=== PATIENT | male | born 1950 | race Caucasian/White ===

== ENCOUNTER 2018-05-22 17:48 | Inpatient (IN) ==
[2018-05-22] MEDS ORDERED: Acetaminophen 120 MG RECTAL SUPP RC ONE (17:56)
[2018-05-22] MEDS ORDERED: 0.9 % Sodium Chloride 1,000 ML IVC ONE (17:57)
[2018-05-22] MEDS: 0.9 % Sodium Chloride 1,000 ML IVC SCH ×2 (17:57→18:29)
[2018-05-22] MEDS ORDERED: Acetaminophen 650 MG RECTAL SUPP RC ONE (17:59)
[2018-05-22] MEDS ORDERED: Levofloxacin 750 MG/150 ML 750 MG/150 ML BAG IVPB ONE (18:02)
[2018-05-22] MEDS ORDERED: Azithromycin 500 MG in D5% in Water 250 ML IVPB ONE (18:02)
--- NOTE | 2018-05-22 18:06 | Emergency Department Note ---
Disposition Clinical Impression: Delirium due to general medical condition Sepsis Qualifiers: Sepsis type: sepsis due to unspecified organism Qualified Code(s): A41.9 - Sepsis, unspecified organism Disposition: Still a Patient Referrals: Russ Mitchell DO [Primary Care Provider] - General Adult HPI - General Chief complaint: ED Altered Mental Status Stated complaint: AMS Time Seen by Provider: 05/22/18 17:49 Source: EMS Limitations: no limitations - History of Present Illness Pain Scale: 0 - Related Data Home Medications Medication Instructions Recorded Confirmed Aspirin 10/29/15 10/29/15 Baclofen 10/29/15 10/29/15 BuPROPion 10/29/15 10/29/15 CarBAMazepine 10/29/15 10/29/15 FLUoxetine HCl 10/29/15 10/29/15 Haloperidol 10/29/15 10/29/15 Klonopin 10/29/15 10/29/15 MiraLAX 10/29/15 10/29/15 Multivitamin 10/29/15 10/29/15 Singulair 10/29/15 10/29/15 Vitamin D 10/29/15 10/29/15 Vitamin E 10/29/15 10/29/15 Zantac 10/29/15 10/29/15 Previous Rx's Medication Instructions Recorded Doxycycline 100 mg PO BID #14 capsule 10/29/15 predniSONE [Prednisone] 40 mg PO DAILY #4 tablet 10/29/15 Doxycycline Hyclate 100 mg PO BID #14 tablet 05/21/18 Allergies Allergy/AdvReac Type Severity Reaction Status Date / Time celecoxib [From Celebrex] Allergy Rash Verified 10/15/15 11:53 cephalexin [From Keflex] Allergy Rash Verified 10/15/15 11:53 Past Medical History - Past Medical History Medical history: Reports: hypertension, other Surgical history: Reports: no surgical history Psychiatric history: Reports: anxiety, depression - Social History Smoking Status: Never smoker Smokeless Tobacco Status: No Alcohol use: Reports: none Drug use: Reports: none Physical Exam - General Limitations: no limitations General appearance: alert, in no apparent distress Course - Reevaluation(s) Reevaluation #1: Attestation note I examined this patient and my medical decision-making was reviewed with the emergency medicine resident. I agree with the documented findings, disposition and treatment plan as described except to the extent set forth below. Patient seen with emergency medicine resident Dr. Cari Hubbard, Please see a copy of his note for details of the H&P, ED evaluation, management and disposition. I have independently evaluated the patient and confirmed appropriate portions of the history and physical exam. Briefly: 67-year-old male seen yesterday by Dr. Mcpherson in the emergency department at [facility]. Please see a copy of his chart for details of the history evaluation workup and discharge disposition at the time. Patient arrives decreased responsiveness altered mental status by EMS. Patient was slightly somnolent responds a little daughter Zohra patient has a history of [place]'s chorea patient had a chest x-ray which showed infiltrate was placed and antibiotics. Patient comes in with mental status that stiffing from yesterday. Dr. Mcphreson who is working today was able to confirm that at bedside. Patient's satisfy sepsis criteria and is undergoing sepsis protocol with IV antibiotics labs and IV fluid. Urinalysis and chest x- ray pending. Providing 45 minutes critical care service this patient admission anticipated disposition pending Time: 18:04 Vital Signs Temperature 101.5 F H 05/22/18 17:49 Pulse Rate 112 05/22/18 17:49 Respiratory Rate 26 05/22/18 17:49 Blood Pressure 129/96 05/22/18 17:49 O2 Sat by Pulse Oximetry 94 05/22/18 17:49 Temperature 101.5 F H 05/22/18 17:49 Pulse Rate 112 05/22/18 17:49 Respiratory Rate 26 05/22/18 17:49 Blood Pressure 129/96 05/22/18 17:49 O2 Sat by Pulse Oximetry 92 05/22/18 17:53 Oxygen Delivery Oxygen Delivery Nasal Cannula
[2018-05-22] MEDS ORDERED: Piperacillin/Tazobactam 3.375 GM in 0.9 % Sodium Chloride Mini Bag 100 ML IVPB ONE (18:07)
[2018-05-22 18:12] LABS: Basophils # 0.1 K/mcL (0.0-0.2); Basophils % 0.3 %; Hematocrit 47.6 % (37.5-50.1); Hemoglobin 15.6 g/dL (12.9-16.9); Immature Granulocytes % 0.4 % (0-4); Lymphocytes # 0.6 K/mcL (0.6-4.6); Lymphocytes % 4.3 %; Mean Corpuscular HGB Conc 32.8 g/dL (31.6-35.5); Mean Corpuscular Hemoglobin 31.4 pg (28.0-33.3); Mean Corpuscular Volume 95.8 fL (83.0-100.0); Mean Platelet Volume 9.9 fL (9.4-12.4); Monocytes % 6.7 %; Neutrophils # 12.8 K/mcL (1.6-8.9); Platelet Count 186 K/mcL (140-400); Red Blood Count 4.97 M/mcL (4.19-5.50); Red Cell Distribution Width 12.4 % (11.5-14.5); Segmented Neutrophils % 88.3 %
[2018-05-22 18:14] LABS: Bilirubin,Urine Small (Negative); Blood,Urine Moderate (Negative); Clarity,Urine Clear (Clear); Color,Urine Dark Yellow (Yellow); Glucose,Urine (UA) Normal (Normal); Ketones,Urine 15 mg/dL (Negative); Leukocyte Esterase,Urine Negative (Negative); Nitrite,Urine Negative (Negative); Protein,Urine 100 mg/dL (Neg-Trace); Specific Gravity,Urine > 1.030 (1.010-1.025); Urobilinogen,Urine Normal (Normal)
[2018-05-22 18:17] LABS: Bacteria,Urine None Seen per hpf (None-Few); RBC,Urine 15-30 per hpf (0-3); Squamous Epithelial Cell,Urine Many per lpf (None-Few); WBC,Urine 0-3 per hpf (0-3)
[2018-05-22 18:20] LABS: INR 1.2
[2018-05-22 18:31] LABS: Hyaline Casts,Urine Moderate per lpf (None-Few)
[2018-05-22 18:38] LABS: Alanine Aminotransferase 11 Units/L (7-52); Albumin 4.1 g/dL (3.5-5.7); Albumin/Globulin Ratio 1.4 (1.1-2.2); Alkaline Phosphatase 82 Units/L (34-104); Aspartate Amino Transferase 23 Units/L (13-39); BUN/Creatinine Ratio 20 (6-26); Bilirubin,Total 0.5 mg/dL (0.3-1.0); Blood Urea Nitrogen 19 mg/dL (8-23); Calcium 9.2 mg/dL (8.6-10.3); Carbon Dioxide 32 mEq/L (23-29); Chloride 100 mEq/L (98-107); Glucose 148 mg/dL (70-105); Magnesium 1.8 mg/dL (1.6-2.6); Osmolality,Calculated 295 (280-300); Phosphorous 1.9 mg/dL (2.7-4.5); Sodium 140 mEq/L (136-145); Total Protein 7.1 g/dL (6.4-8.9); Troponin I < 0.03 ng/mL (< 0.04); eGFR For African Americans > 60 (> 60); eGFR For Non-African Americans > 60 (> 60)
--- NOTE | 2018-05-22 18:43 | Emergency Department Note ---
Disposition Clinical Impression: Delirium due to general medical condition Sepsis Qualifiers: Sepsis type: sepsis due to unspecified organism Qualified Code(s): A41.9 - Sepsis, unspecified organism Disposition: Admitted As Inpatient Condition: Good Referrals: Russ Mitchell DO [Primary Care Provider] - Forms: ED Satisfaction Letter Time of Disposition: 18:51 General Adult HPI - General Chief complaint: ED Altered Mental Status Stated complaint: AMS Time Seen by Provider: 05/22/18 17:49 Source: EMS Limitations: no limitations Nursing Notes Reviewed: Yes Vital Signs Reviewed: Yes - History of Present Illness HPI Narrative: Decreased responsiveness throughout the day today. Was seen here yesterday and given doxycycline but had not received any doses of this for possible pneumonia. Has been febrile at home. Pain Scale: 0 - Related Data Home Medications Medication Instructions Recorded Confirmed Aspirin 10/29/15 10/29/15 Baclofen 10/29/15 10/29/15 BuPROPion 10/29/15 10/29/15 CarBAMazepine 10/29/15 10/29/15 FLUoxetine HCl 10/29/15 10/29/15 Haloperidol 10/29/15 10/29/15 Klonopin 10/29/15 10/29/15 MiraLAX 10/29/15 10/29/15 Multivitamin 10/29/15 10/29/15 Singulair 10/29/15 10/29/15 Vitamin D 10/29/15 10/29/15 Vitamin E 10/29/15 10/29/15 Zantac 10/29/15 10/29/15 Previous Rx's Medication Instructions Recorded Doxycycline 100 mg PO BID #14 capsule 10/29/15 predniSONE [Prednisone] 40 mg PO DAILY #4 tablet 10/29/15 Doxycycline Hyclate 100 mg PO BID #14 tablet 05/21/18 Allergies Allergy/AdvReac Type Severity Reaction Status Date / Time celecoxib [From Celebrex] Allergy Rash Verified 10/15/15 11:53 cephalexin [From Keflex] Allergy Rash Verified 10/15/15 11:53 Limitations: ROS unobtainable due to patients medical condition Past Medical History - Past Medical History Medical history: Reports: hypertension, other Surgical history: Reports: no surgical history Psychiatric history: Reports: anxiety, depression - Social History Smoking Status: Never smoker Smokeless Tobacco Status: No Alcohol use: Reports: none Drug use: Reports: none Physical Exam - General Limitations: altered mental status - Head Head exam: atraumatic, normocephalic, normal inspection - Eye Eye exam: Present: normal appearance, PERRL, EOMI - ENT ENT exam: normal exam, normal oropharynx, mucous membranes moist - Neck Neck exam: Present: normal inspection, full ROM, trachea midline - Chest Chest inspection: Present: normal inspection, symmetric chest wall rise - Respiratory Respiratory exam: Present: respiratory distress (Tachypneic.), wheezes ( Decreased lower lobe sounds. Rhonchorous in the upper bilaterally.), accessory muscle use - Cardiovascular Cardiovascular exam: Present: tachycardia, normal heart sounds - Abdominal Exam Abdominal exam: Present: soft. Absent: distention, rigidity, organomegaly - Extremities Exam Extremities exam: Present: normal inspection, full ROM. Absent: tenderness, pedal edema - Neurological Exam Neurological exam: Present: other (Patient does arouse and speaks but quickly goes back to sleep.) - Skin Skin exam: Present: warm, dry, other (Skin breakdown to buttocks.) Course Course Narrative: Male patient presenting to emergency department with decreased responsiveness. EMS reports a possible response to Narcan. He did receive another dose Narcan here with no large response. states that the patient was hard to arouse today. He was seen here yesterday and given doxycycline for possible pneumonia. There is no pneumonia seen on x-ray however the physician stated that there is a large amount of secretions so he was concerned that this was developing. He had not received a dose of the doxycycline whenever she had a hard time arousing him. No trauma. Patient's oxygen saturation stays in the high 80s without oxygen. He was on a nonrebreather whenever he came in by EMS. He is maintaining an oxygen saturation in the mid 90s on 6 L via nasal cannula. He does have a pneumonia on x-ray today. I am concerned was possibly would be aspiration as the states that he had vomited while he was having the unresponsive time. The patient does have some drooping to his face is consistent with his history of [place]'s. The patient is febrile at 101. We have given the patient 1 L of fluids. We will withhold a large amount of fluids as the patient does appear to be volume overloaded on his chest x-ray. The patient on taken Zosyn for possible aspiration pneumonia. Basic lab workup showed a elevated white blood cell count but no other large derangements. There was blood in his urine possibly from the [place] catheter. No signs of UTI. We will admit patient to the hospital for sepsis. He is maintaining a blood pressure within normal limits while here. - Consultations Consultation #1: Dr reno accepted Pt. He is requesting a head ct we have ordered this. Time: 19:03 Vital Signs Temperature 101.5 F H 05/22/18 17:49 Pulse Rate 112 05/22/18 17:49 Respiratory Rate 26 05/22/18 17:49 Blood Pressure 129/96 05/22/18 17:49 O2 Sat by Pulse Oximetry 94 05/22/18 17:49 Temperature 101.5 F H 05/22/18 17:49 Pulse Rate 98 05/22/18 18:46 Respiratory Rate 24 05/22/18 18:46 Blood Pressure 101/56 05/22/18 18:46 O2 Sat by Pulse Oximetry 97 05/22/18 18:46 Oxygen Delivery Oxygen Delivery Nasal Cannula Medical Decision Making - Medical Records Medical records reviewed: Yes I reviewed the patient's medical records. - Lab Data Lab results reviewed: Yes I reviewed the patient's lab results. Result diagrams: 05/22/18 17:56 05/22/18 17:56 Lab Results 05/22/18 05/22/18 05/22/18 Range/Units 17:56 17:56 17:56 WBC 14.5 H (4.3-11.1) K/mcL RBC 4.97 (4.19-5.50) M/mcL Hgb 15.6 (12.9-16.9) g/dL Hct 47.6 (37.5-50.1) % MCV 95.8 (83.0-100.0) fL MCH 31.4 (28.0-33.3) pg MCHC 32.8 (31.6-35.5) g/dL RDW 12.4 (11.5-14.5) % Plt Count 186 (140-400) K/mcL MPV 9.9 (9.4-12.4) fL Immature Gran % 0.4 (0-4) % Seg Neutrophils % 88.3 % Lymphocytes % 4.3 % Monocytes % 6.7 % Eosinophils % 0.0 % Basophils % 0.3 % Neutrophils # 12.8 H (1.6-8.9) K/mcL Lymphocytes # 0.6 (0.6-4.6) K/mcL Monocytes # 1.0 (0.0-1.3) K/mcL Eosinophils # 0.0 (0.0-0.6) K/mcL Basophils # 0.1 (0.0-0.2) K/mcL PT 13.0 H (9.4-12.1) Seconds INR 1.2 VBG pH (7.32-7.42) pH Units VBG pCO2 (41-51) mmHg VBG pO2 (25-50) mmHg VBG HCO3 (21-27) mEq/L Sodium 140 (136-145) mEq/L Potassium 4.0 (3.5-5.1) mEq/L Chloride 100 (98-107) mEq/L Carbon Dioxide 32 H (23-29) mEq/L BUN 19 (8-23) mg/dL Creatinine 0.96 (0.70-1.30) mg/dL Est GFR ( Amer) > 60 (> 60) Est GFR (Non-Af Amer) > 60 (> 60) BUN/Creatinine Ratio 20 (6-26) Glucose 148 H (70-105) mg/dL Calculated Osmolality 295 (280-300) Lactic Acid (0.5-2.2) mmol/L Calcium 9.2 (8.6-10.3) mg/dL Phosphorus 1.9 L (2.7-4.5) mg/dL Magnesium 1.8 (1.6-2.6) mg/dL Total Bilirubin 0.5 (0.3-1.0) mg/dL AST 23 (13-39) Units/L ALT 11 (7-52) Units/L Alkaline Phosphatase 82 (34-104) Units/L Troponin I < 0.03 (< 0.04) ng/mL Serum Total Protein 7.1 (6.4-8.9) g/dL Albumin 4.1 (3.5-5.7) g/dL Globulin 3.0 (2.4-3.5) g/dL Albumin/Globulin Ratio 1.4 (1.1-2.2) Urine Color (Yellow) Urine Clarity (Clear) Urine pH (5.0-8.0) pH Units Ur Specific [place] (1.010-1.025) Urine Protein (Neg-Trace) mg/dL Urine Glucose (UA) (Normal) mg/dL Urine Ketones (Negative) mg/dL Urine Blood (Negative) Urine Nitrite (Negative) Urine Bilirubin (Negative) Urine Urobilinogen (Normal) mg/dL Ur Leukocyte Esterase (Negative) Urine Microscopic RBC (0-3) per hpf Urine Microscopic WBC (0-3) per hpf Ur Squamous Epith Cells (None-Few) per lpf Urine Bacteria (None-Few) per hpf Hyaline Casts (None-Few) per lpf 05/22/18 05/22/18 05/22/18 Range/Units 18:00 18:32 18:52 WBC (4.3-11.1) K/mcL RBC (4.19-5.50) M/mcL Hgb (12.9-16.9) g/dL Hct (37.5-50.1) % MCV (83.0-100.0) fL MCH (28.0-33.3) pg MCHC (31.6-35.5) g/dL RDW (11.5-14.5) % Plt Count (140-400) K/mcL MPV (9.4-12.4) fL Immature Gran % (0-4) % Seg Neutrophils % % Lymphocytes % % Monocytes % % Eosinophils % % Basophils % % Neutrophils # (1.6-8.9) K/mcL Lymphocytes # (0.6-4.6) K/mcL Monocytes # (0.0-1.3) K/mcL Eosinophils # (0.0-0.6) K/mcL Basophils # (0.0-0.2) K/mcL PT (9.4-12.1) Seconds INR VBG pH 7.36 (7.32-7.42) pH Units VBG pCO2 56 H (41-51) mmHg VBG pO2 57 H (25-50) mmHg VBG HCO3 32 H (21-27) mEq/L Sodium (136-145) mEq/L Potassium (3.5-5.1) mEq/L Chloride (98-107) mEq/L Carbon Dioxide (23-29) mEq/L BUN (8-23) mg/dL Creatinine (0.70-1.30) mg/dL Est GFR ( Amer) (> 60) Est GFR (Non-Af Amer) (> 60) BUN/Creatinine Ratio (6-26) Glucose (70-105) mg/dL Calculated Osmolality (280-300) Lactic Acid 1.4 (0.5-2.2) mmol/L Calcium (8.6-10.3) mg/dL Phosphorus (2.7-4.5) mg/dL Magnesium (1.6-2.6) mg/dL Total Bilirubin (0.3-1.0) mg/dL AST (13-39) Units/L ALT (7-52) Units/L Alkaline Phosphatase (34-104) Units/L Troponin I (< 0.04) ng/mL Serum Total Protein (6.4-8.9) g/dL Albumin (3.5-5.7) g/dL Globulin (2.4-3.5) g/dL Albumin/Globulin Ratio (1.1-2.2) Urine Color Dark Yellow (Yellow) Urine Clarity Clear (Clear) Urine pH 5.0 (5.0-8.0) pH Units Ur Specific [place] > 1.030 H (1.010-1.025) Urine Protein 100 H (Neg-Trace) mg/dL Urine Glucose (UA) Normal (Normal) mg/dL Urine Ketones 15 H (Negative) mg/dL Urine Blood Moderate H (Negative) Urine Nitrite Negative (Negative) Urine Bilirubin Small H (Negative) Urine Urobilinogen Normal (Normal) mg/dL Ur Leukocyte Esterase Negative (Negative) Urine Microscopic RBC 15-30 H (0-3) per hpf Urine Microscopic WBC 0-3 (0-3) per hpf Ur Squamous Epith Cells Many H (None-Few) per lpf Urine Bacteria None Seen (None-Few) per hpf Hyaline Casts Moderate H (None-Few) per lpf - Radiology Data Radiology results reviewed: Yes I reviewed the patient's radiology results. Chest X-Ray 05/22/18 17:50 IMPRESSION: There is suggestion of a left lower lobe infiltrate. Otherwise unremarkable chest. D/ / Tyson Ayala MD / Tyson Ayala MD Interpreting Provider: Tyson Ayala MD - EKG Data EKG #1 EKG attestation: Yes I reviewed and interpreted this EKG. EKG results narrative: Sinus tachycardia at a rate of 107. PA interval is 207. QRS duration is 102. QT is 397. QTC is 460. No signs of ischemia. No significant change from previous EKG dated 2015.
[2018-05-22 18:55] LABS: VBG HCO3 32 mEq/L (21-27); VBG PCO2 56 mmHg (41-51); VBG PH 7.36 pH Units (7.32-7.42); VBG PO2 57 mmHg (25-50)
--- NOTE | 2018-05-22 21:36 | Internal Med History&Physical ---
<Arielle Pham - Last Filed: 05/23/18 06:37> Date of Encounter: 05/23/18 Time of Encounter: 20:00 Internal Medicine - H&P: HPI Chief complaint: altered mental status Admitted From: Home History of present illness: Mr. 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 Patient's , sister, brother, and [id number] are at bedside. Notably, the patient was seen in the emergency department yesterday with complaints of cough and nasal congestion; he was diagnosed with acute bronchitis and discharged home with prescription for doxycycline. Patient's states that this morning the patient was less responsive than he normally is and would not open his eyes or talk and she was unable to give him his morning meds. At baseline the patient is awake, alert, oriented, talks, and is interactive. Patient's also reports he had a temperature at home of 100.6 F today and give him Tylenol. Patient continues to have cough, patient's states that his cough was dry yesterday but today the cough is wet sounding. Pt' s states that after she returned home from [facility] this today the home health aid informed her the patient vomited after having a root beer float for lunch. In the emergency department the patient was febrile at 101.5 F, HR 112, RR 26, SPO2 94% on 3 L nasal cannula. Workup revealed WBC 14.5, phosphorus 1.9, and bicarbonate 32. His troponin was negative and had lactic acid of 1.4. CXR showed possible LLL patchy infiltrate. Head CT was negative. He was admitted to hospitalist service for further evaluation and care. Past Med Surg Social Fam HX - Past Medical History Medical history: hyperlipidemia, other Additional medical history: Andrew's Psychiatric history: anxiety, depression - Past Surgical History Surgical History: no surgical history Additional surgical history: carpal tunnel right wrist - Social History Smoking Status: Never smoker Smokeless Tobacco Status: No Alcohol use: none Drug use: none Internal Medicine - H&P: Meds Aspirin [Adult Aspirin] 81 mg PO DAILY 05/22/18 [History] Baclofen [Lioresal] 15 mg PO TID 05/22/18 [History] BuPROPion [Wellbutrin] 150 mg PO QAM 05/22/18 [History] CarBAMazepine [Carbamazepine ER] 200 mg PO BID 05/22/18 [History] Cholecalciferol (Vitamin D3) [Vitamin D] 2,000 unit PO DAILY 05/22/18 [History] FLUoxetine HCl [Fluoxetine HCl] 40 mg PO DAILY 05/22/18 [History] Lovastatin [Mevacor] 20 mg PO HS 05/22/18 [History] Montelukast [Singulair] 10 mg PO DAILY 05/22/18 [History] Multivitamin-Min/Iron/FA/Vit K [Multi-Day Plus Minerals Tablet] 1 tab PO DAILY 05/22/18 [History] Polyethylene Glycol 3350 [MiraLAX] 17 gm PO DAILY PRN 05/22/18 [History] raNITIdine HCl [Zantac] 150 mg PO BID 05/22/18 [History] traZODone [TraZODone] 100 mg PO HS 05/22/18 [History] Triamcinolone Acet 0.1% CRM [Kenalog] 1 appl TP DAILY 05/23/18 [History] Vitamin E 1,000 unit PO DAILY 05/23/18 [History] clonazePAM [Klonopin] 0.5 mg PO 1200 05/23/18 [History] clonazePAM [Klonopin] 0.5 mg PO QAM 05/23/18 [History] clonazePAM [Klonopin] 1.5 mg PO HS 05/23/18 [History] 3 Allergy/AdvReac Type Severity Reaction Status Date / Time celecoxib [From Celebrex] Allergy Rash Verified 10/15/15 11:53 cephalexin [From Keflex] Allergy Rash Verified 10/15/15 11:53 ROS unobtainable: due to mental status All Systems PM: A 10-system review of systems was performed and is negative for pertinent findings except as documented above in the HPI. - Constitutional Vitals: Temp Pulse Resp BP Pulse Ox 100.6 F H 99 20 109/74 92 05/22/18 20:50 05/22/18 19:30 05/22/18 20:50 05/22/18 20:50 05/22/18 20:50 General appearance: Present: A&O X 0, no acute distress, obese - Head Head exam: Present: atraumatic, normocephalic - Eye Eye exam: Present: normal appearance, PERRL - ENT ENT exam: Present: mucous membranes moist - Respiratory Additional comments: transmission of upper airway noises; rhonchorous breath sounds bilaterally - Cardiovascular Cardiovascular exam: Present: RRR, +S1, +S2 - GI/Abdominal GI/Abdominal exam: Present: diminished bowel sounds, soft. Absent: distended, tenderness - Extremities Exam Extremities exam: Present: normal capillary refill, warm. Absent: cyanotic, mottling, pedal edema - Neurological Exam Additional comments: unable to fully assess d/t altered mental status; opens eyes to voice and follows some commands; somnolent - Skin Skin exam: Present: dry, erythema (bilateral buttocks, blanchable), warm. Absent: rash Additional comments: small (< 0.5 cm), open lesion of left buttock without active drainage or bleeding Internal Med - H&P Results - Labs CBC & Chem 7: 05/23/18 00:52 05/23/18 00:52 - Assessment and plan (1) Sepsis Current Visit: Yes Status: Acute Assessment and plan: Sepsis criteria met on admission: Temp 101.5, HR 112, RR 26, likely d/t PNA Hemodynamically stable, no evidence of organ dysfunction at this time, lactic acid 1.4--not in septic shock Possible aspiration event at home today Received zosyn, vancomycin, and 1L bolus in ED CXR shows LLL patchy infiltrate Plan Telemetry monitoring Blood culture results pending Sputum culture Continue zosyn and vancomycin for now De-escalate antibiotics as culture results become available Qualifiers: Sepsis type: sepsis due to unspecified organism Qualified Code(s): A41.9 - Sepsis, unspecified organism (2) Encephalopathy acute Current Visit: Yes Status: Acute Assessment and plan: Decreased responsiveness since this morning, per family Etiology unclear at this time, likely related to sepsis d/t infection with PNA Somnolent but does arouse to voice, opens eyes and attempts to squeeze my hand on command CT head shows no acute intracranial abnormality; stable generalized cerebral atrophy EKG shows does not show evidence of ischemia Oxygenating 92-97% on 5L nasal cannula Plan NPO for now d/t aspiration risk Monitor oxygenation and mental status closely Continue supplemental oxygen As above for "Sepsis" (3) Pneumonia Current Visit: Yes Status: Acute Assessment and plan: Seen in ED yesterday for c/o cough and nasal congestion; diagnosed with acute bronchitis and discharged home with doxycycline prescription Possible aspiration event today at home CXR shows LLL patchy infiltrate Empiric antibiotics started in ED Plan As above for "Sepsis" Consult to speech therapy for swallow eval Qualifiers: Pneumonia type: due to unspecified organism Laterality: left Lung location: lower lobe of lung Qualified Code(s): J18.1 - Lobar pneumonia, unspecified organism (4) Hypophosphatemia Current Visit: Yes Status: Acute Assessment and plan: Phosphorus 1.9 on admission Plan Replace with KPhos 44 mEq IV Recheck phos @ 12:00 (5) Metabolic alkalosis with respiratory acidosis Current Visit: Yes Status: Acute Assessment and plan: Venous blood gas from ED shows: pH 7.36 / pCO2 56 / HCO3 32 Serum bicarb 32 (6) Hyperlipemia Current Visit: Yes Status: Acute Assessment and plan: Takes lovastatin at home, hold for now as pt is NPO Qualifiers: Hyperlipidemia type: unspecified Qualified Code(s): E78.5 - Hyperlipidemia , unspecified (7) Pickett's disease Current Visit: Yes Status: Acute Assessment and plan: Sees [facility] neurology--Dr. Alison Erickson (8) Skin breakdown Current Visit: Yes Status: Acute Assessment and plan: Protective dressing Turn regularly for redistribution of pressure Routine nursing care to prevent further skin breakdown (9) DVT prophylaxis Current Visit: Yes Status: Acute Assessment and plan: Heparin 5,000 units subcutaneously Q12H - Time Spent With Patient Total time spent is greater than 50% in coordination of care (as documented) at patient's floor/unit and/or counseling patient: <Berkley Giles - Last Filed: 05/26/18 06:41> Date of Encounter: 05/23/18 Internal Medicine - H&P: HPI History of present illness: Mr. Florian is a 67 year old male All Systems PM: A 10-system review of systems was performed and is negative for pertinent findings except as documented above in the HPI. - Constitutional Vitals: Temp Pulse Resp BP Pulse Ox 99.3 F 75 18 128/69 96 05/26/18 03:57 05/26/18 03:57 05/26/18 03:57 05/26/18 03:57 05/26/18 03:57 Internal Med - H&P Results - Labs CBC & Chem 7: 05/24/18 05:14 05/24/18 05:14 - Impressions ITS Impressions Videofluoroscopic Swallow 05/23/18 12:48 IMPRESSION: Transient penetration with thin consistency contrast as above. Please see separate speech pathology report for full discussion of findings and recommendations. D/ / Ritchie Camacho MD / Ritchie Camacho MD Interpreting Provider: Ritchie Camacho MD - Attending Attestation I have personally performed the [place]orn[place] portion of history and physical examination. I discussed these findings,assessment and plans outlined above with the resident, and I agree with the proposed assessment and plan. - Assessment and plan (1) Sepsis Current Visit: Yes Status: Acute Qualifiers: Sepsis type: sepsis due to unspecified organism Qualified Code(s): A41.9 - Sepsis, unspecified organism (2) Encephalopathy acute Current Visit: Yes Status: Resolved (3) Pneumonia Current Visit: Yes Status: Acute Qualifiers: Pneumonia type: due to unspecified organism Laterality: left Lung location: lower lobe of lung Qualified Code(s): J18.1 - Lobar pneumonia, unspecified organism (4) Pickett's disease Current Visit: Yes Status: Chronic (5) DVT prophylaxis Current Visit: Yes Status: Acute (6) Acute and chronic respiratory failure Current Visit: Yes Status: Acute Qualifiers: Respiratory failure complication: hypoxia Qualified Code(s): J96.21 - Acute and chronic respiratory failure with hypoxia - Time Spent With Patient Total time spent is greater than 50% in coordination of care (as documented) at patient's floor/unit and/or counseling patient:
[2018-05-22 23:11] LABS: VBG HCO3 29 mEq/L (21-27); VBG PCO2 53 mmHg (41-51); VBG PH 7.35 pH Units (7.32-7.42); VBG PO2 162 mmHg (25-50)
[2018-05-23 01:10] LABS: Hematocrit 42.9 % (37.5-50.1); Mean Corpuscular HGB Conc 32.4 g/dL (31.6-35.5); Mean Corpuscular Hemoglobin 31.7 pg (28.0-33.3); Mean Corpuscular Volume 97.9 fL (83.0-100.0); Mean Platelet Volume 9.9 fL (9.4-12.4); Monocytes # 0.9 K/mcL (0.0-1.3); Platelet Count 164 K/mcL (140-400); Red Blood Count 4.38 M/mcL (4.19-5.50); Red Cell Distribution Width 12.4 % (11.5-14.5)
[2018-05-23 01:18] LABS: Hemoglobin 13.9 g/dL (12.9-16.9)
[2018-05-23 01:24] LABS: BUN/Creatinine Ratio 19 (6-26); Blood Urea Nitrogen 20 mg/dL (8-23); Calcium 8.3 mg/dL (8.6-10.3); Carbon Dioxide 35 mEq/L (23-29); Chloride 104 mEq/L (98-107); Glucose 145 mg/dL (70-105); Osmolality,Calculated 299 (280-300); Potassium 4.2 mEq/L (3.5-5.1); Sodium 142 mEq/L (136-145); eGFR For African Americans > 60 (> 60); eGFR For Non-African Americans > 60 (> 60)
[2018-05-23] MEDS: Piperacillin/Tazobactam 3.375 GM in 0.9 % Sodium Chloride Mini Bag 100 ML IVPB SCH ×3 (01:34→17:47)
[2018-05-23 01:49] LABS: Lymphocytes # 2.5 K/mcL (0.6-4.6); Neutrophils # 11.2 K/mcL (1.6-8.9); Platelet Estimate Normal (Normal)
[2018-05-23] MEDS ORDERED: Potassium Phosphate 44 MEQ in 0.9 % Sodium Chloride 250 ML IVPB ONE (04:40)
[2018-05-23] MEDS: *HR* Heparin 5,000 UNIT/ML VIAL SQ SCH ×2 (05:24→17:46)
[2018-05-23] MEDS ORDERED: Aminoglycoside Consult 1 EACH MC ONE (09:13)
--- NOTE | 2018-05-23 12:21 | Internal Med Progress Note ---
Date of Encounter: 05/23/18 Time of Encounter: 11:52 - Assessment and plan (1) Pneumonia Current Visit: Yes Status: Acute Assessment and plan: Patient was seen in ED one day before admission and diagnosed with acute bronchitis and discharge patient home with doxycycline prescription. Chest x- ray shows left lower lobe patchy infiltrate. Vanco mycin, Zosyn was started in the ER. Blood culture with no growth. Patient appeared clinically better. Continue DuoNeb and a spirometry as tolerated. Patient want to get Sommer catheter removed therefore it is removed but urine culture Qualifiers: Pneumonia type: due to unspecified organism Laterality: left Lung location: lower lobe of lung Qualified Code(s): J18.1 - Lobar pneumonia, unspecified organism (2) Sepsis Current Visit: Yes Status: Acute Assessment and plan: Due to above.Sepsis criteria met on admission: Temp 101.5, HR 112, RR 26, likely d/t PNA. Hemodynamically stable, lactic acid 1.4 Received zosyn, vancomycin, and 1L bolus in ED Qualifiers: Sepsis type: sepsis due to unspecified organism Qualified Code(s): A41.9 - Sepsis, unspecified organism (3) Encephalopathy acute Current Visit: Yes Status: Acute Assessment and plan: Better mentation. Most likely due to acute infection in the form of pneumonia. Continue to monitor. CT head with no acute finding. 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 Under care of neurolologist at [facility]. Several family member also has positive Audrain disease. Concern of dysphagia and aspiration therefore consulted space therapist who recommended modified barium swallow study. Consulted neurologist for further management. As patient is bedbound therefore prophylaxis for pressure sore advised (5) DVT prophylaxis Current Visit: Yes Status: Acute Assessment and plan: Heparin and DVT - Time Spent With Patient Total time spent is greater than 50% in coordination of care (as documented) at patient's floor/unit and/or counseling patient: 25 - 35 minutes - Subjective Interval history: No fever overnight, better cough and shortness of breath. Poor communication Due to Audrain disease Brothers at bedside. Patient denies fever or chest pain vomiting diarrhea abdominal pain headache. Patient want to get sommer catheter removed. Cloudy looking urine. - Constitutional Vitals: Temp Pulse Resp BP Pulse Ox 98.8 F 88 20 115/67 91 05/23/18 11:32 05/23/18 11:32 05/23/18 11:32 05/23/18 11:32 05/23/18 11:32 General appearance: Present: A&O X 0, no acute distress, obese Exam: General appearance: No acute distress, A&O X 3, obese. Family at bedside Head exam: Atraumatic Eye exam: EOMI, PERRLA ENT exam: Moist oral mucosa Neck nontender, supple Respiratory exam: diminished breath sound bilaterally Cardiovascular exam: Regular rate and rhythm, no systolic murmur Abdominal exam: Soft, nontender, nondistended, positive bowel sounds Extremities exam: No calf tenderness, no pedal edema Present: Skin- warm, dry, intact Neurological exam: Alert, awake, oriented 3, motor- b/l LE- 1/5 , RUE 4/5 LUE-3 /5. slurred speech. Bed and wheelchair-bound Internal Medicine: Result - Labs CBC & Chem 7: 05/23/18 00:52 05/23/18 00:52 - ABG Interpretation ABG results: PT/INR, D-dimer PT 13.0 Seconds (9.4-12.1) H 05/22/18 17:56 - VTE Documentation of Mechanical Device: Intermittent pneumatic compression device Consult Discharge Plan - Plan Referrals: Dago Mcmahan FENCE SETTER [Advanced Practice Nurse] - 05/30/18 10:00 am
[2018-05-23 12:52] LABS: Bilirubin,Urine Negative (Negative); Blood,Urine Large (Negative); Clarity,Urine Turbid (Clear); Color,Urine Yellow (Yellow); Glucose,Urine (UA) Normal (Normal); Ketones,Urine 15 mg/dL (Negative); Leukocyte Esterase,Urine Negative (Negative); Nitrite,Urine Negative (Negative); PH,Urine 5.5 pH Units (5.0-8.0); Protein,Urine 100 mg/dL (Neg-Trace); Specific Gravity,Urine 1.025 (1.010-1.025); Urobilinogen,Urine Normal (Normal)
[2018-05-23 12:53] LABS: RBC,Urine TNTC per hpf (0-3); WBC,Urine 15-30 per hpf (0-3)
[2018-05-23 13:05] LABS: Squamous Epithelial Cell,Urine Few per lpf (None-Few)
[2018-05-23 13:07] LABS: Bacteria,Urine Few per hpf (None-Few)
[2018-05-23 13:08] LABS: Granular Casts,Urine Few per lpf (None Seen); Mucus,Urine Few (Few)
[2018-05-23 13:11] LABS: Amorphous Sediment,Urine Few (Few); Uric Acid Crystals,Urine Present
[2018-05-23] MEDS: Ipratropium/Albuterol Neb 3 ML IH SCH ×3 (15:49→22:23)
--- NOTE | 2018-05-23 16:27 | Electrocardiograph Report ---
[place] [id number] Test Date: 2018-05-22 Pat Name: Dandy Florian Department: 103 Room: 2N14 Gender: M Rotary Cutter: : 1950 Requested By: Casey Petersen Order Number: [id number] Reading MD: Ivy Rawls Measurements Intervals [place] Rate: 107 P: 40 SC: 207 QRS: -39 QRSD: 102 T: 56 QT: 397 QTc: 460 Interpretive Statements SINUS TACHYCARDIA MARKED LEFT AXIS DEVIATION [QRS AXIS < -30] NONSPECIFIC ST-WAVE ABNORMALITY Electronically Signed On 05-23-2018 16:26:28 EDT by Ivy Rawls
[2018-05-23] MEDS: Baclofen 10 MG TABLET PO SCH ×2 (17:45→21:21)
[2018-05-23] MEDS ORDERED: Acetaminophen 325 MG TABLET PO PRN (20:28)
[2018-05-23] MEDS: CarBAMazepine XR (12 hr) 100 MG TAB PO SCH (21:20)
[2018-05-23] MEDS: traZODone 50 MG TABLET PO SCH (21:20)
[2018-05-23] MEDS: Famotidine 20 MG TABLET PO SCH (21:22)
[2018-05-24] MEDS: Piperacillin/Tazobactam 3.375 GM in 0.9 % Sodium Chloride Mini Bag 100 ML IVPB SCH ×3 (02:33→18:03)
[2018-05-24] MEDS: Ipratropium/Albuterol Neb 3 ML IH SCH ×4 (04:08→22:50)
[2018-05-24] MEDS: *HR* Heparin 5,000 UNIT/ML VIAL SQ SCH ×2 (05:24→18:03)
[2018-05-24 06:01] LABS: Basophils % 0.1 %; Eosinophils # 0.1 K/mcL (0.0-0.6); Eosinophils % 1.4 %; Hematocrit 40.6 % (37.5-50.1); Hemoglobin 13.1 g/dL (12.9-16.9); Immature Granulocytes % 0.3 % (0-4); Lymphocytes # 1.4 K/mcL (0.6-4.6); Lymphocytes % 18.4 %; Mean Corpuscular HGB Conc 32.3 g/dL (31.6-35.5); Mean Corpuscular Hemoglobin 31.6 pg (28.0-33.3); Mean Corpuscular Volume 98.1 fL (83.0-100.0); Mean Platelet Volume 10.7 fL (9.4-12.4); Monocytes # 0.7 K/mcL (0.0-1.3); Monocytes % 9.1 %; Neutrophils # 5.5 K/mcL (1.6-8.9); Platelet Count 145 K/mcL (140-400); Red Blood Count 4.14 M/mcL (4.19-5.50); Red Cell Distribution Width 12.4 % (11.5-14.5); Segmented Neutrophils % 70.7 %
[2018-05-24 06:25] LABS: Vancomycin,Trough 17 mcg/mL (5-10)
[2018-05-24 06:50] LABS: BUN/Creatinine Ratio 18 (6-26); Blood Urea Nitrogen 15 mg/dL (8-23); Calcium 8.2 mg/dL (8.6-10.3); Carbon Dioxide 33 mEq/L (23-29); Chloride 103 mEq/L (98-107); Glucose 118 mg/dL (70-105); Osmolality,Calculated 296 (280-300); Potassium 3.5 mEq/L (3.5-5.1); Sodium 142 mEq/L (136-145); eGFR For African Americans > 60 (> 60); eGFR For Non-African Americans > 60 (> 60)
--- NOTE | 2018-05-24 07:26 | Neurology - Consult Note ---
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 However I believe that his acute encephalopathy was due to sepsis associated with the pneumonia. His mental status is already improving. I simply recommend continuing his antibiotic therapy. I do not believe that any additional neuro testing or treatment measures are necessary at this time. There is no nuchal rigidity present. I will reevaluate him at your request. History of Present Illness HPI: The chart was reviewed, the patient was seen and examined. 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 Mr. Florian is a 67 year old male who was seen for neurologic consultation secondary to history of Jasper's disease. According to his brother he began manifesting symptoms of Andrew's disease in his 40s. Currently he is totally reliant on his and others for his care. His brother informs me that his general level of activity is for the most part and lying in bed or sitting in a wheelchair. He is unable to feed himself or walk. He is able to talk however his speech is very dysarthric and difficult to understand. He lives at home and family members noted that he was less responsive than he normally is. Apparently he would not open his eyes and would not talk. Patient was brought to [facility] for further assessment. Upon arrival was identified that his temp was 101.5. Chest x-ray revealed left lower lobe are patchy infiltrate. I did personally review the CT scan of the brain, which revealed significant element of cortical atrophy in particular atrophy of the caudate nucleus bilaterally. There is no evidence of acute infarct mass effect or hemorrhagic process. Past Med Surg Social Fam HX - Past Medical History Medical history: hyperlipidemia, other Additional medical history: Jasper's Psychiatric history: anxiety, depression - Past Surgical History Surgical History: no surgical history Additional surgical history: carpal tunnel right wrist - Social History Smoking Status: Never smoker Smokeless Tobacco Status: No Alcohol use: none Drug use: none Medications and Allergies Aspirin [Adult Aspirin] 81 mg PO DAILY 05/22/18 [History] Baclofen [Lioresal] 15 mg PO TID 05/22/18 [History] BuPROPion [Wellbutrin] 150 mg PO QAM 05/22/18 [History] CarBAMazepine [Carbamazepine ER] 200 mg PO BID 05/22/18 [History] Cholecalciferol (Vitamin D3) [Vitamin D] 2,000 unit PO DAILY 05/22/18 [History] FLUoxetine HCl [Fluoxetine HCl] 40 mg PO DAILY 05/22/18 [History] Lovastatin [Mevacor] 20 mg PO HS 05/22/18 [History] Montelukast [Singulair] 10 mg PO DAILY 05/22/18 [History] Multivitamin-Min/Iron/FA/Vit K [Multi-Day Plus Minerals Tablet] 1 tab PO DAILY 05/22/18 [History] Polyethylene Glycol 3350 [MiraLAX] 17 gm PO DAILY PRN 05/22/18 [History] raNITIdine HCl [Zantac] 150 mg PO BID 05/22/18 [History] traZODone [TraZODone] 100 mg PO HS 05/22/18 [History] Triamcinolone Acet 0.1% CRM [Kenalog] 1 appl TP DAILY 05/23/18 [History] Vitamin E 1,000 unit PO DAILY 05/23/18 [History] clonazePAM [Klonopin] 0.5 mg PO 1200 05/23/18 [History] clonazePAM [Klonopin] 0.5 mg PO QAM 05/23/18 [History] clonazePAM [Klonopin] 1.5 mg PO HS 05/23/18 [History] 3 Allergy/AdvReac Type Severity Reaction Status Date / Time celecoxib [From Celebrex] Allergy Rash Verified 10/15/15 11:53 cephalexin [From Keflex] Allergy Rash Verified 10/15/15 11:53 ROS unobtainable: due to mental status All Systems: The remainder of the systems were reviewed and are negative Physical Examination - Vital Signs Vital Signs: Initial Vital Signs Temp Pulse Resp BP Pulse Ox 101.5 F H 112 26 129/96 94 05/22/18 17:49 05/22/18 17:49 05/22/18 17:49 05/22/18 17:49 05/22/18 17:49 - Exam Exam: Neurologic examination is performed and finds the following. Cerebral functions-he is awake, but seems somewhat drowsy. He is able to speak however his speech is very dysarthric and difficult to understand at times. He knows that he is in the hospital however cannot tell me specifically which hospital. He did ask for the bedpan "to needed to [facility]". He is unable to provide any meaningful history however. He is able to follow some simple commands. Cranial nerve exam-pupils are equal and reactive to light, extraocular motility is intact. Sensory to face seems to be intact. There is no facial asymmetry. Gag reflex is intact. 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 I see no nystagmus or opsoclonus. No truncal ataxia. Motor exam-he does have ataxic and ballistic movements of the upper extremities when he tries to purposefully move them. He can wiggle the toes on command. Floral Artist strength is about 3/5 symmetrically. He is able to raise the hip flexors against gravity for moment. Sensory exam is difficult to ascertain in a cognitively compromised patient. However, he does withdraw from just him. Deep tendon reflexes-absent throughout. No clonus or Babinski at present. Results - Laboratory Findings CBC and BMP: 05/24/18 05:14 05/24/18 05:14 Abnormal lab findings: Abnormal lab results RBC 4.14 M/mcL (4.19-5.50) L 05/24/18 05:14 Band Neutrophils % 8.0 % (0-4) H 05/23/18 00:52 Metamyelocytes % 4.0 % (0) H 05/23/18 00:52 Myelocytes % 2.0 % (0) H 05/23/18 00:52 PT 13.0 Seconds (9.4-12.1) H 05/22/18 17:56 VBG pCO2 53 mmHg (41-51) H 05/22/18 23:07 VBG pO2 162 mmHg (25-50) H 05/22/18 23:07 VBG HCO3 29 mEq/L (21-27) H 05/22/18 23:07 Carbon Dioxide 33 mEq/L (23-29) H 05/24/18 05:14 Glucose 118 mg/dL (70-105) H 05/24/18 05:14 POC Glucose 199 mg/dL (70-99) H 05/23/18 17:12 Calcium 8.2 mg/dL (8.6-10.3) L 05/24/18 05:14 Urine Clarity Turbid (Clear) A 05/23/18 12:44 Urine Protein 100 mg/dL (Neg-Trace) H 05/23/18 12:44 Urine Ketones 15 mg/dL (Negative) H 05/23/18 12:44 Urine Blood Large (Negative) H 05/23/18 12:44 Urine Microscopic RBC TNTC per hpf (0-3) H 05/23/18 12:44 Urine Microscopic WBC 15-30 per hpf (0-3) H 05/23/18 12:44 Hyaline Casts Moderate per lpf (None-Few) H 05/22/18 18:00 Granular Casts Few per lpf (None Seen) H 05/23/18 12:44 Vancomycin Trough 17 mcg/mL (5-10) H 05/24/18 05:14 Consult Discharge Plan - Plan Referrals: Dago Mcmahan, LACE PAPER MACHINE OPERATOR [Advanced Practice Nurse] - 05/30/18 10:00 am
[2018-05-24] MEDS: CarBAMazepine XR (12 hr) 100 MG TAB PO SCH ×2 (09:14→20:55)
[2018-05-24] MEDS: Cholecalciferol (D-3) 1,000 UNIT TABLET PO SCH (09:15)
[2018-05-24] MEDS: Baclofen 10 MG TABLET PO SCH ×3 (09:15→20:51)
[2018-05-24] MEDS: Multivit/Ca/Min/Fe/FA 1 TAB TABLET PO SCH (09:15)
[2018-05-24] MEDS: Famotidine 20 MG TABLET PO SCH (09:15)
[2018-05-24] MEDS: FLUoxetine 20 MG CAPSULE PO SCH (09:15)
[2018-05-24] MEDS: Aspirin Enteric Coated 81 MG Tablet PO SCH (09:15)
[2018-05-24] MEDS: TRIAMCINOLONE ACET TP SCH (09:17)
[2018-05-24] MEDS: clonazePAM 1 MG TABLET PO SCH (11:50)
--- NOTE | 2018-05-24 12:22 | Internal Med Progress Note ---
Date of Encounter: 05/24/18 Time of Encounter: 12:20 - Assessment and plan (1) Pneumonia Current Visit: Yes Status: Acute Assessment and plan: Improving. Will stop vancomycin as blood culture with no growth yet and nasals of negative MRSA. Will de-escalate antibiotic in next 24 based on clinical improvement and culture report. Patient was seen in ED one day before admission and diagnosed with acute bronchitis and discharge patient home with doxycycline prescription. Chest x- ray shows left lower lobe patchy infiltrate. Vanco mycin, Zosyn was started in the ER. Blood culture with no growth yet. Continue DuoNeb and a spirometry as tolerated. Qualifiers: Pneumonia type: due to unspecified organism Laterality: left Lung location: lower lobe of lung Qualified Code(s): J18.1 - Lobar pneumonia, unspecified organism (2) Sepsis Current Visit: Yes Status: Acute Assessment and plan: Due to above.Sepsis criteria met on admission: Temp 101.5, HR 112, RR 26, likely d/t PNA. Hemodynamically stable, lactic acid 1.4 Received zosyn, vancomycin, and 1L bolus in ED Qualifiers: Sepsis type: sepsis due to unspecified organism Qualified Code(s): A41.9 - Sepsis, unspecified organism (3) Encephalopathy acute Current Visit: Yes Status: Acute Assessment and plan: Better mentation. Most likely due to acute infection in the form of pneumonia. Continue to monitor. CT head with no acute finding. 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 Under care of neurolologist at [facility]. Several family member also has positive Brown disease. Concern of dysphagia and aspiration therefore consulted speech therapist who recommended modified barium swallow study- an for today. Onboard neurologist . As patient is bedbound therefore prophylaxis for pressure sore advised (5) DVT prophylaxis Current Visit: Yes Status: Acute Assessment and plan: Heparin s/c, scd - Time Spent With Patient Total time spent is greater than 50% in coordination of care (as documented) at patient's floor/unit and/or counseling patient: 25 - 35 minutes - Subjective Interval history: Appear more alert awake. No fever overnight, better cough and shortness of breath. Poor communication Due to Brown disease. at bedside Patient denies fever or chest pain vomiting diarrhea abdominal pain headache. Review the lab with trending down white count. - Constitutional Vitals: Temp Pulse Resp BP Pulse Ox 99.3 F 101 18 108/77 96 05/24/18 11:43 05/24/18 11:43 05/24/18 11:43 05/24/18 11:43 05/24/18 11:43 General appearance: Present: A&O X 0, no acute distress, obese Exam: General appearance: No acute distress, Ax2 oriented to person and somewhat place , obese. at bedside Head exam: Atraumatic Eye exam: EOMI, PERRLA ENT exam: Moist oral mucosa Neck nontender, supple Respiratory exam: diminished breath sound bilaterally Cardiovascular exam: Regular rate and rhythm, no systolic murmur Abdominal exam: Soft, nontender, nondistended, positive bowel sounds Extremities exam: No calf tenderness, no pedal edema Present: Skin- warm, dry, intact Neurological exam: motor- b/l LE- 2/5 , RUE 4/5 LUE-3/5. Dysarthria . Bed and wheelchair-bound Internal Medicine: Result - Labs CBC & Chem 7: 05/24/18 05:14 05/24/18 05:14 Labs: Short CBC 05/24/18 Range/Units 05:14 WBC 7.8 (4.3-11.1) K/mcL Hgb 13.1 (12.9-16.9) g/dL Hct 40.6 (37.5-50.1) % Plt Count 145 (140-400) K/mcL Neutrophils # 5.5 (1.6-8.9) K/mcL BMP 05/24/18 05:14 Sodium 142 Potassium 3.5 Chloride 103 Carbon Dioxide 33 H BUN 15 Creatinine 0.83 Glucose 118 H Calcium 8.2 L Urine 05/23/18 Range/Units 12:44 Urine Color Yellow (Yellow) Urine Clarity Turbid A (Clear) Urine pH 5.5 (5.0-8.0) pH Units Ur Specific [place] 1.025 (1.010-1.025) Urine Protein 100 H (Neg-Trace) mg/dL Urine Glucose (UA) Normal (Normal) mg/dL - ABG Interpretation ABG results: PT/INR, D-dimer PT 13.0 Seconds (9.4-12.1) H 05/22/18 17:56 - Impressions Impressions Videofluoroscopic Swallow 05/23/18 12:48 IMPRESSION: Transient penetration with thin consistency contrast as above. Please see separate speech pathology report for full discussion of findings and recommendations. D/ / Ritchie Camacho MD / Ritchie Camacho MD Interpreting Provider: Ritchie Camacho MD - VTE Documentation of Mechanical Device: Intermittent pneumatic compression device Consult Discharge Plan - Plan Referrals: Dago Mcmahan, VICE PRESIDENT GLOBAL ADVERTISING SALES [Advanced Practice Nurse] - 05/30/18 10:00 am
[2018-05-24] MEDS: traZODone 50 MG TABLET PO SCH (20:56)
[2018-05-25] MEDS: Piperacillin/Tazobactam 3.375 GM in 0.9 % Sodium Chloride Mini Bag 100 ML IVPB SCH ×3 (02:26→17:31)
[2018-05-25] MEDS: Ipratropium/Albuterol Neb 3 ML IH SCH ×4 (04:04→21:49)
[2018-05-25] MEDS: *HR* Heparin 5,000 UNIT/ML VIAL SQ SCH ×2 (05:35→17:31)
[2018-05-25] MEDS: CarBAMazepine XR (12 hr) 100 MG TAB PO SCH ×2 (08:00→20:42)
[2018-05-25] MEDS: Cholecalciferol (D-3) 1,000 UNIT TABLET PO SCH (08:00)
[2018-05-25] MEDS: Aspirin Enteric Coated 81 MG Tablet PO SCH (08:00)
[2018-05-25] MEDS: Famotidine 20 MG TABLET PO SCH (08:01)
[2018-05-25] MEDS: FLUoxetine 20 MG CAPSULE PO SCH (08:01)
[2018-05-25] MEDS: Baclofen 10 MG TABLET PO SCH ×3 (08:01→20:42)
[2018-05-25] MEDS: Multivit/Ca/Min/Fe/FA 1 TAB TABLET PO SCH (08:01)
[2018-05-25] MEDS: TRIAMCINOLONE ACET TP SCH (08:02)
[2018-05-25] MEDS: clonazePAM 1 MG TABLET PO SCH (13:01)
--- NOTE | 2018-05-25 15:37 | Internal Med Progress Note ---
Date of Encounter: 05/25/18 Time of Encounter: 10:20 - Assessment and plan (1) Sepsis Current Visit: Yes Status: Acute Assessment and plan: Presented with fever, tachycardia, leukocytosis secondary to pneumonia. Serum lactate level normal. Currently improving. Follow up final cultures and continue IV antibiotics. Qualifiers: Sepsis type: sepsis due to unspecified organism Qualified Code(s): A41.9 - Sepsis, unspecified organism (2) Encephalopathy acute Current Visit: Yes Status: Resolved (3) Pneumonia Current Visit: Yes Status: Acute Assessment and plan: Chest x-ray shows left lower lobe infiltrate. Blood cultures negative. Continue IV Zosyn for now. Continue supportive care and supplemental oxygen. Patient continues to require 6 L/m oxygen via nasal cannula. Qualifiers: Pneumonia type: due to unspecified organism Laterality: left Lung location: lower lobe of lung Qualified Code(s): J18.1 - Lobar pneumonia, unspecified organism (4) [place]'s disease Current Visit: Yes Status: Chronic Assessment and plan: Continue supportive care. Urology has been consulted, no new recommendations. Resume home meds. Patient is bed bound, requires frequent repositioning. (5) DVT prophylaxis Current Visit: Yes Status: Acute (6) Acute and chronic respiratory failure Current Visit: Yes Status: Acute Assessment and plan: Patient is on nocturnal home oxygen at 4 L/m via nasal cannula. Requiring more oxygen at this time due to underlying pneumonia. Qualifiers: Respiratory failure complication: hypoxia Qualified Code(s): J96.21 - Acute and chronic respiratory failure with hypoxia - Time Spent With Patient Total time spent is greater than 50% in coordination of care (as documented) at patient's floor/unit and/or counseling patient: - Subjective Interval history: Reports feeling better. Speech is unclear, history also obtained with the help of his at bedside. Patient is currently at baseline mental status per his . Noted to be gurgling with copious respiratory secretions. Continues to require high flow supplemental oxygen. - Constitutional Vitals: Temp Pulse Resp BP Pulse Ox 99.3 F 86 20 119/62 92 05/25/18 11:23 05/25/18 11:23 05/25/18 11:23 05/25/18 11:23 05/25/18 11:23 General appearance: Present: A&O X 2, obese - Respiratory Respiratory exam: Present: CTAB (coarse breath sounds B/L). Absent: accessory muscle use, rales, rhonchi, wheezes - Cardiovascular Cardiovascular exam: Present: RRR, +S1, +S2. Absent: diastolic murmur, gallop, rubs, systolic murmur - GI/Abdominal GI/Abdominal exam: Present: normal bowel sounds, soft, no peritoneal signs. Absent: distended, tenderness - Extremities Exam Extremities exam: Present: pedal edema (dependent edema due to bedbound status) , warm, radial pulses palpable and symmetrical. Absent: calf tenderness, cyanotic - Neurological Exam Neurological exam: Present: no focal deficits (B/L LE weakness). Absent: pronater drift, facial droop, speech deficit Internal Medicine: Result - Labs CBC & Chem 7: 05/24/18 05:14 05/24/18 05:14 - ABG Interpretation ABG results: PT/INR, D-dimer PT 13.0 Seconds (9.4-12.1) H 05/22/18 17:56 - VTE Documentation of Mechanical Device: Intermittent pneumatic compression device Consult Discharge Plan - Plan Referrals: Dago Mcmahan, RECORDS MANAGEMENT MANAGER [Advanced Practice Nurse] - 05/30/18 10:00 am
[2018-05-25] MEDS: traZODone 50 MG TABLET PO SCH (20:42)
[2018-05-26] MEDS: Piperacillin/Tazobactam 3.375 GM in 0.9 % Sodium Chloride Mini Bag 100 ML IVPB SCH ×3 (01:31→17:06)
[2018-05-26] MEDS: Ipratropium/Albuterol Neb 3 ML IH SCH ×4 (03:51→23:01)
[2018-05-26] MEDS: *HR* Heparin 5,000 UNIT/ML VIAL SQ SCH ×2 (05:56→17:07)
[2018-05-26] MEDS: Cholecalciferol (D-3) 1,000 UNIT TABLET PO SCH (08:39)
[2018-05-26] MEDS: Multivit/Ca/Min/Fe/FA 1 TAB TABLET PO SCH (08:39)
[2018-05-26] MEDS: Aspirin Enteric Coated 81 MG Tablet PO SCH (08:39)
[2018-05-26] MEDS: CarBAMazepine XR (12 hr) 100 MG TAB PO SCH ×2 (08:39→20:38)
[2018-05-26] MEDS: Famotidine 20 MG TABLET PO SCH (08:39)
[2018-05-26] MEDS: Baclofen 10 MG TABLET PO SCH ×3 (08:39→20:38)
[2018-05-26] MEDS: FLUoxetine 20 MG CAPSULE PO SCH (08:40)
[2018-05-26] MEDS: TRIAMCINOLONE ACET TP SCH (08:41)
[2018-05-26] MEDS: clonazePAM 1 MG TABLET PO SCH (13:04)
--- NOTE | 2018-05-26 15:37 | Internal Med Progress Note ---
Date of Encounter: 05/26/18 Time of Encounter: 10:20 - Assessment and plan (1) Sepsis Current Visit: Yes Status: Resolved Assessment and plan: Presented with fever, tachycardia, leukocytosis secondary to pneumonia. Serum lactate level normal. Currently improving. continue IV antibiotics. Qualifiers: Sepsis type: sepsis due to unspecified organism Qualified Code(s): A41.9 - Sepsis, unspecified organism (2) Encephalopathy acute Current Visit: Yes Status: Resolved (3) Pneumonia Current Visit: Yes Status: Acute Assessment and plan: Chest x-ray shows left lower lobe infiltrate. Blood cultures negative. Continue IV Zosyn for now. Continue supportive care and supplemental oxygen. Patient continues to require 5-6 L/m oxygen via nasal cannula. d/w staff weapons officer regarding frequent pulmonary toilet and airway suctioning; Qualifiers: Pneumonia type: due to unspecified organism Laterality: left Lung location: lower lobe of lung Qualified Code(s): J18.1 - Lobar pneumonia, unspecified organism (4) [place]'s disease Current Visit: Yes Status: Chronic Assessment and plan: Continue supportive care. Neurology has been consulted, no new recommendations. Resume home meds. Patient is bed bound, requires frequent repositioning. (5) DVT prophylaxis Current Visit: Yes Status: Acute (6) Acute and chronic respiratory failure Current Visit: Yes Status: Acute Assessment and plan: Patient is on nocturnal home oxygen at 4 L/m via nasal cannula. Requiring more oxygen at this time due to underlying pneumonia. Plan as above; Qualifiers: Respiratory failure complication: hypoxia Qualified Code(s): J96.21 - Acute and chronic respiratory failure with hypoxia - Time Spent With Patient Total time spent is greater than 50% in coordination of care (as documented) at patient's floor/unit and/or counseling patient: - Subjective Interval history: Has muffled speech, cannot comprehend appropriately; continues to require high- flow O2 and noted to be gurgling; copious secretions need to be suctioned and repositioned frequently; no fever/chills, chest pain; - Constitutional Vitals: Temp Pulse Resp BP Pulse Ox 99.6 F 71 18 122/72 95 05/26/18 11:03 05/26/18 11:03 05/26/18 11:03 05/26/18 11:03 05/26/18 11:03 General appearance: Present: A&O X 2, obese - Respiratory Respiratory exam: Present: CTAB (coarse breath sounds B/L). Absent: accessory muscle use, rales, rhonchi, wheezes - Cardiovascular Cardiovascular exam: Present: RRR, +S1, +S2. Absent: diastolic murmur, gallop, rubs, systolic murmur - GI/Abdominal GI/Abdominal exam: Present: normal bowel sounds, soft (obese), no peritoneal signs. Absent: distended, tenderness - Extremities Exam Extremities exam: Present: pedal edema (dependent), warm, radial pulses palpable and symmetrical. Absent: calf tenderness, cyanotic Internal Medicine: Result - Labs CBC & Chem 7: 05/24/18 05:14 05/24/18 05:14 - ABG Interpretation ABG results: PT/INR, D-dimer PT 13.0 Seconds (9.4-12.1) H 05/22/18 17:56 - VTE Documentation of Mechanical Device: Intermittent pneumatic compression device Consult Discharge Plan - Plan Referrals: Dago Mcmahan, TELEVISION ENGINEER [Advanced Practice Nurse] - 05/30/18 10:00 am
[2018-05-26] MEDS: traZODone 50 MG TABLET PO SCH (20:38)
[2018-05-27] MEDS: Piperacillin/Tazobactam 3.375 GM in 0.9 % Sodium Chloride Mini Bag 100 ML IVPB SCH ×3 (02:25→17:55)
[2018-05-27 03:29] LABS: Basophils % 0.2 %; Eosinophils # 0.4 K/mcL (0.0-0.6); Eosinophils % 4.6 %; Hematocrit 37.9 % (37.5-50.1); Hemoglobin 12.4 g/dL (12.9-16.9); Immature Granulocytes % 0.4 % (0-4); Immature Platelets 3.2 % (1.1-6.1); Lymphocytes # 1.7 K/mcL (0.6-4.6); Lymphocytes % 19.4 %; Mean Corpuscular HGB Conc 32.7 g/dL (31.6-35.5); Mean Corpuscular Hemoglobin 31.3 pg (28.0-33.3); Mean Corpuscular Volume 95.7 fL (83.0-100.0); Mean Platelet Volume 10.2 fL (9.4-12.4); Monocytes # 0.9 K/mcL (0.0-1.3); Monocytes % 10.5 %; Neutrophils # 5.8 K/mcL (1.6-8.9); Platelet Count 187 K/mcL (140-400); Red Blood Count 3.96 M/mcL (4.19-5.50); Red Cell Distribution Width 12.1 % (11.5-14.5); Segmented Neutrophils % 64.9 %
[2018-05-27 03:39] LABS: BUN/Creatinine Ratio 10 (6-26); Blood Urea Nitrogen 8 mg/dL (8-23); Calcium 8.8 mg/dL (8.6-10.3); Carbon Dioxide 34 mEq/L (23-29); Chloride 100 mEq/L (98-107); Glucose 112 mg/dL (70-105); Osmolality,Calculated 293 (280-300); Potassium 3.4 mEq/L (3.5-5.1); Sodium 142 mEq/L (136-145); eGFR For African Americans > 60 (> 60); eGFR For Non-African Americans > 60 (> 60)
[2018-05-27] MEDS: Ipratropium/Albuterol Neb 3 ML IH SCH ×3 (03:57→15:10)
[2018-05-27] MEDS: *HR* Heparin 5,000 UNIT/ML VIAL SQ SCH ×2 (05:36→18:02)
[2018-05-27] MEDS: Famotidine 20 MG TABLET PO SCH (08:30)
[2018-05-27] MEDS: Baclofen 10 MG TABLET PO SCH ×2 (08:31→18:03)
[2018-05-27] MEDS: CarBAMazepine XR (12 hr) 100 MG TAB PO SCH (08:31)
[2018-05-27] MEDS: Multivit/Ca/Min/Fe/FA 1 TAB TABLET PO SCH (08:31)
[2018-05-27] MEDS: FLUoxetine 20 MG CAPSULE PO SCH (08:32)
[2018-05-27] MEDS: Aspirin Enteric Coated 81 MG Tablet PO SCH (08:32)
[2018-05-27] MEDS: Cholecalciferol (D-3) 1,000 UNIT TABLET PO SCH (08:32)
[2018-05-27] MEDS: TRIAMCINOLONE ACET TP SCH (08:51)
[2018-05-27] MEDS ORDERED: Potassium Chloride Elixir 20 MEQ/15 ML UDC PO ONE (09:46)
[2018-05-27 11:11] VITALS: BP 129/72
[2018-05-27] MEDS ORDERED: Miconazole w/zinc oxide&karaya 92 APPL/92 GM TUBE TP SCH (11:15)
[2018-05-27] MEDS: clonazePAM 1 MG TABLET PO SCH (12:34)
--- NOTE | 2018-05-27 15:22 | Discharge Summary ---
- NOTES TO OUTPATIENT PROVIDER Notes to Outpatient Provider: Pneumonia, acute respiratory failure- improving; patient needs frequent pulmonary toilet and suctioning; Date of Encounter: 05/27/18 Time of Encounter: 09:50 - Discharge Diagnosis (1) Sepsis Priority: Primary Status: Resolved Qualifiers: Sepsis type: sepsis due to unspecified organism Qualified Code(s): A41.9 - Sepsis, unspecified organism (2) Encephalopathy acute Priority: Primary Status: Resolved (3) Pneumonia Priority: Primary Status: Acute Qualifiers: Pneumonia type: due to unspecified organism Laterality: left Lung location: lower lobe of lung Qualified Code(s): J18.1 - Lobar pneumonia, unspecified organism (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 Florian is a 67 year old male mostly bedbound patient with history of Robson disease, was admitted with worsening shortness of breath and cough. Patient was noted to be in acute on chronic respiratory failure, requiring high flow oxygen initially. Chest x-ray was suggestive of left lower lobe infiltrate , he was started on broad-spectrum IV antibiotics-vancomycin and Zosyn. Blood cultures, urine Legionella and strep pneumoniae antigen negative. MRSA screen negative. Antibiotics were then De escalated to IV Zosyn. Patient was also noted to have acute encephalopathy at admission, which improved with treatment for pneumonia. Neurology was consulted, recommended no further intervention. Bedside swallow evaluation and modified barium Swallow study was completed, patient is cleared for pureed diet and thin liquids. He continues to have moist cough, he requires frequent repositioning, Airway suctioning and aspiration precautions. Physical therapy evaluation was completed, patient is noted to be significantly debilitated from baseline, family is in agreement to transfer him to [facility] for short-term rehabilitation. He is otherwise medically stable. Discharge discussed with: patient, family, nurse, social work - Time Spent with Patient Total time spent providing and/or coordinating discharge services: Greater than 30 minutes (45 min) - Discharge Medications Prescriptions: clonazePAM [Klonopin] 0.5 mg PO 1200 5 Days #5 tablet clonazePAM [Klonopin] 0.5 mg PO QAM 5 Days #5 tablet clonazePAM [Klonopin] 1.5 mg PO HS 5 Days #5 tablet Levofloxacin [Levaquin] 750 mg PO DAILY #4 tablet metroNIDAZOLE [Flagyl] 500 mg PO TID #12 tablet Home Medications: Aspirin [Adult Aspirin] 81 mg PO DAILY 05/22/18 [History] Baclofen [Lioresal] 15 mg PO TID 05/22/18 [History] BuPROPion [Wellbutrin] 150 mg PO QAM 05/22/18 [History] CarBAMazepine [Carbamazepine ER] 200 mg PO BID 05/22/18 [History] Cholecalciferol (Vitamin D3) [Vitamin D3] 2,000 unit PO DAILY 05/22/18 [History] FLUoxetine HCl [Fluoxetine HCl] 40 mg PO DAILY 05/22/18 [History] Lovastatin [Mevacor] 20 mg PO HS 05/22/18 [History] Montelukast [Singulair] 10 mg PO DAILY 05/22/18 [History] Multivitamin-Min/Iron/FA/Vit K [Multi-Day Plus Minerals Tablet] 1 tab PO DAILY 05/22/18 [History] Polyethylene Glycol 3350 [MiraLAX] 17 gm PO DAILY PRN 05/22/18 [History] raNITIdine HCl [Zantac] 150 mg PO BID 05/22/18 [History] traZODone [TraZODone] 100 mg PO HS 05/22/18 [History] Triamcinolone Acet 0.1% CRM [Kenalog] 1 appl TP DAILY 05/23/18 [History] Vitamin E 1,000 unit PO DAILY 05/23/18 [History] Ipratropium/Albuterol Neb [Duoneb] 3 ml IH [id number] inhsol 05/27/18 [Rx] Levofloxacin [Levaquin] 750 mg PO DAILY #4 tablet 05/27/18 [Rx] Miconazole w/zinc oxide&karaya [Antifungal Extra Thick] 1 appl TP BID tube [Rx] clonazePAM [Klonopin] 0.5 mg PO 1200 5 Days #5 tablet 05/27/18 [Rx] clonazePAM [Klonopin] 0.5 mg PO QAM 5 Days #5 tablet 05/27/18 [Rx] clonazePAM [Klonopin] 1.5 mg PO HS 5 Days #5 tablet 05/27/18 [Rx] metroNIDAZOLE [Flagyl] 500 mg PO TID #12 tablet 05/27/18 [Rx] Allergies/Adverse Reactions: 3 Allergy/AdvReac Type Severity Reaction Status Date / Time celecoxib [From Celebrex] Allergy Rash Verified 10/15/15 11:53 cephalexin [From Keflex] Allergy Rash Verified 10/15/15 11:53 Date of admission: 05/23/18 11:08 Primary care physician: Russ Mitchell DO Consults: 05/23/18 12:25 Consult to Neurology [CONS] Routine Consulting Provider: Neurology [facility] Reason for Consult: Robson disease Call Completed: Yes 05/26/18 14:18 Consult to Wound Care [CONS] Routine Reason for Consult: coccyx wound Call Completed: No 05/26/18 19:42 Consult to Physical Therapy [CONS] Routine Comment: Evaluate, develop and implement POC Reason for Consult: Patient supposed to be DC'd tomorrow, but is worried that he will be bedridden at home. He was able to stand with assistance and pivot before coming to the hospital. Does patient have active BEDREST order?: Yes Is patient medically & hemodynamically stable?: Yes Discharging clinician: Tracie Alberts Anticipated date of discharge: 05/27/18 - Constitutional Vitals: Temp Pulse Resp BP Pulse Ox 99.8 F H 85 16 129/72 92 05/27/18 11:10 05/27/18 11:10 05/27/18 15:10 05/27/18 11:10 05/27/18 15:10 General appearance: Present: A&O X 2 (muffled speech), obese - Respiratory Respiratory exam: Present: CTAB (coarse breath sounds B/L). Absent: accessory muscle use, rales, rhonchi, wheezes - Patient Status Disposition: Transfer SNF Condition: Good Functional capacity at discharge: bed bound Overall status at discharge: patient is progressing back to baseline - Discharge Instructions Follow Up With: Dago Mcmahan, [employer]IST [Advanced Practice Nurse] - (this patient is going to an ECF no PCP appointment needed) Additional Instructions: F/up with PCP in 1-2 weeks - Diet and Activity Activity: as per physical therapy, wear oxygen at all times Diet: low fat, low cholesterol, low salt diet (pureed) - VTE Documentation of Mechanical Device: Intermittent pneumatic compression device
--- NOTE | 2018-05-27 15:31 | Physician Discharge Referral ---
ExtendedCare Referral Info Transfer To: [facility] Provider in Charge: Tracie Alberts Provider in Charge after Transfer: PCP Institutional Level of Care: Skilled - Diagnosis (1) Sepsis Priority: Primary Status: Resolved (2) Encephalopathy acute Priority: Primary Status: Resolved (3) Pneumonia Priority: Primary Status: Acute (4) [place]'s disease Priority: Secondary Status: Chronic (5) Acute and chronic respiratory failure Priority: Primary Status: Acute Expected Duration of Placement: 3 weeks Prognosis: Poor Aware of Diagnosis: Family Aware of Prognosis: Family - Transfer Medications Prescriptions: clonazePAM [Klonopin] 0.5 mg PO 1200 5 Days #5 tablet clonazePAM [Klonopin] 0.5 mg PO QAM 5 Days #5 tablet clonazePAM [Klonopin] 1.5 mg PO HS 5 Days #5 tablet Levofloxacin [Levaquin] 750 mg PO DAILY #4 tablet metroNIDAZOLE [Flagyl] 500 mg PO TID #12 tablet Home Medications: Aspirin [Adult Aspirin] 81 mg PO DAILY 05/22/18 [History] Baclofen [Lioresal] 15 mg PO TID 05/22/18 [History] BuPROPion [Wellbutrin] 150 mg PO QAM 05/22/18 [History] CarBAMazepine [Carbamazepine ER] 200 mg PO BID 05/22/18 [History] Cholecalciferol (Vitamin D3) [Vitamin D3] 2,000 unit PO DAILY 05/22/18 [History] FLUoxetine HCl [Fluoxetine HCl] 40 mg PO DAILY 05/22/18 [History] Lovastatin [Mevacor] 20 mg PO HS 05/22/18 [History] Montelukast [Singulair] 10 mg PO DAILY 05/22/18 [History] Multivitamin-Min/Iron/FA/Vit K [Multi-Day Plus Minerals Tablet] 1 tab PO DAILY 05/22/18 [History] Polyethylene Glycol 3350 [MiraLAX] 17 gm PO DAILY PRN 05/22/18 [History] raNITIdine HCl [Zantac] 150 mg PO BID 05/22/18 [History] traZODone [TraZODone] 100 mg PO HS 05/22/18 [History] Triamcinolone Acet 0.1% CRM [Kenalog] 1 appl TP DAILY 05/23/18 [History] Vitamin E 1,000 unit PO DAILY 05/23/18 [History] Ipratropium/Albuterol Neb [Duoneb] 3 ml IH [id number] inhsol 05/27/18 [Rx] Levofloxacin [Levaquin] 750 mg PO DAILY #4 tablet 05/27/18 [Rx] Miconazole w/zinc oxide&karaya [Antifungal Extra Thick] 1 appl TP BID tube [Rx] clonazePAM [Klonopin] 0.5 mg PO 1200 5 Days #5 tablet 05/27/18 [Rx] clonazePAM [Klonopin] 0.5 mg PO QAM 5 Days #5 tablet 05/27/18 [Rx] clonazePAM [Klonopin] 1.5 mg PO HS 5 Days #5 tablet 05/27/18 [Rx] metroNIDAZOLE [Flagyl] 500 mg PO TID #12 tablet 05/27/18 [Rx] Allergies/Adverse Reactions: 3 Allergy/AdvReac Type Severity Reaction Status Date / Time celecoxib [From Celebrex] Allergy Rash Verified 10/15/15 11:53 cephalexin [From Keflex] Allergy Rash Verified 10/15/15 11:53 - Respiratory Orders Oxygen / L per min (4L/min vi NC) Smoking Cessation: Smoking cessation has been advised. For more information, call the [place] Tobacco Quit Line at 8-960-GSVM-NOW. - Advance Directives Power of Telephone Lineworker: Yes Code Status: Full Code - Rehabiliation Orders Rehab Potential: Fair Rehab Orders: ROM Exercises, Evaluation for Physical Therapy, Evaluation for Occupational Therapy, Evaluation for Speech Therapy - Diet Orders Pureed CERTIFICATION: I certify that the transfer of the above named patient to an Extended Care Facility is necessary for the continuing treatment of the diagnosis listed. The above information is true and accurate reflection of patient's current condition. Confidential - Redisclosure prohibited without a patient's written consent.
== END 2018-05-27 19:45 | DRG 871 ==
LOC: 2NENU 17:48 → EMEROO 17:48 → 2NNU 19:45 → SUATTDRO 05-23 11:08
PROVIDERS: ADMIT General Practice; ATTEND Internal Medicine

== ENCOUNTER 2019-09-25 17:00 | Observation (INO) ==
[2019-09-25] MEDS ORDERED: Naloxone 0.4 MG/ML INJ IVP ONE (17:28)
[2019-09-25 18:15] LABS: ABG Base Excess 3 mEq/L (-2 to 3); ABG HCO3 29 mEq/L (21-27); ABG Oxygen Saturation 95 % (95-98); ABG PCO2 53 mmHg (35-45); ABG PH 7.36 pH Units (7.32-7.45); ABG PO2 82 mmHg (85-104); ABG TCO2 31 mEq/L (20-26)
[2019-09-25 18:46] LABS: Bilirubin,Urine Negative (Negative); Blood,Urine Negative (Negative); Clarity,Urine Clear (Clear); Color,Urine Yellow (Yellow); Glucose,Urine (UA) Normal (Normal); Ketones,Urine Negative (Negative); Leukocyte Esterase,Urine Negative (Negative); Nitrite,Urine Negative (Negative); Protein,Urine Negative (Neg-Trace); Specific Gravity,Urine 1.011 (1.010-1.025); Urobilinogen,Urine Normal (Normal)
[2019-09-25 18:48] LABS: Basophils # 0.1 K/mcL (0.0-0.2); Basophils % 0.5 %; Eosinophils # 0.2 K/mcL (0.0-0.6); Hematocrit 44.4 % (37.5-50.1); Hemoglobin 14.7 g/dL (12.9-16.9); Immature Granulocytes % 0.4 % (0-4); Lymphocytes # 1.9 K/mcL (0.6-4.6); Mean Corpuscular HGB Conc 33.1 g/dL (31.6-35.5); Mean Corpuscular Hemoglobin 27.3 pg (28.0-33.3); Mean Corpuscular Volume 82.5 fL (83.0-100.0); Mean Platelet Volume 9.1 fL (9.4-12.4); Neutrophils # 7.6 K/mcL (1.6-8.9); Platelet Count 288 K/mcL (140-400); Prothrombin Time 11.9 Seconds (9.4-12.1); Red Blood Count 5.38 M/mcL (4.19-5.50); Red Cell Distribution Width 13.7 % (11.5-14.5); Segmented Neutrophils % 70.1 %; White Blood Count 10.8 K/mcL (4.3-11.1)
[2019-09-25 18:51] LABS: Activated Partial Thrombo Time 35.6 Seconds (26.0-36.0)
[2019-09-25 19:06] LABS: Amphetamine Screen,Urine Negative ng/mL (Cutoff=1000); Barbiturate Screen,Urine Negative ng/mL (Cutoff=200); Benzodiazepines Screen,Urine Negative ng/mL (Cutoff=200); Cannabinoid Screen,Urine Negative ng/mL (Cutoff = 50); Cocaine Screen,Urine Negative ng/mL (Cutoff= 300); Opiate Screen,Urine Negative ng/mL (Cutoff=300); Phencyclidine Screen,Urine Negative ng/mL (Cutoff=25)
[2019-09-25 19:09] LABS: Acetaminophen < 10 mcg/mL (10-20); Salicylate < 2.5 mg/dL (15.0-30.0)
[2019-09-25 19:11] LABS: Alanine Aminotransferase 14 Units/L (7-52); Albumin 4.3 g/dL (3.5-5.7); Albumin/Globulin Ratio 1.6 (1.1-2.2); Alkaline Phosphatase 114 Units/L (34-104); Aspartate Amino Transferase 15 Units/L (13-39); BUN/Creatinine Ratio 14 (6-26); Bilirubin,Direct 0.1 mg/dL (0.0-0.2); Bilirubin,Indirect 0.3 mg/dL (0.0-1.0); Bilirubin,Total 0.4 mg/dL (0.3-1.0); Blood Urea Nitrogen 16 mg/dL (8-23); Calcium 9.9 mg/dL (8.6-10.3); Carbon Dioxide 28 mEq/L (23-29); Chloride 108 mEq/L (98-107); Globulin 2.7 g/dL (2.4-3.5); Glucose 107 mg/dL (70-105); Osmolality,Calculated 298 (280-300); Potassium 4.9 mEq/L (3.5-5.1); Sodium 143 mEq/L (136-145); Troponin I < 0.03 ng/mL (< 0.04); eGFR For African Americans > 60 (> 60); eGFR For Non-African Americans > 60 (> 60)
[2019-09-25] MEDS ORDERED: Ondansetron 4 MG/2 ML VIAL IVP PRN (21:51)
[2019-09-25] MEDS ORDERED: Acetaminophen 325 MG TABLET PO PRN (21:51)
[2019-09-25] MEDS ORDERED: 0.9 % Sodium Chloride 1,000 ML IVC SCH (22:00)
[2019-09-25] MEDS: *HR* Heparin 5,000 UNIT/ML VIAL SQ SCH (22:36)
[2019-09-26 02:30] LABS: Basophils % 0.4 %; Eosinophils # 0.2 K/mcL (0.0-0.6); Eosinophils % 1.5 %; Hematocrit 42.1 % (37.5-50.1); Hemoglobin 14.2 g/dL (12.9-16.9); Immature Granulocytes % 0.4 % (0-4); Lymphocytes # 1.6 K/mcL (0.6-4.6); Lymphocytes % 14.4 %; Mean Corpuscular HGB Conc 33.7 g/dL (31.6-35.5); Mean Corpuscular Hemoglobin 27.3 pg (28.0-33.3); Mean Corpuscular Volume 80.8 fL (83.0-100.0); Mean Platelet Volume 9.3 fL (9.4-12.4); Monocytes # 0.9 K/mcL (0.0-1.3); Monocytes % 7.8 %; Neutrophils # 8.4 K/mcL (1.6-8.9); Platelet Count 290 K/mcL (140-400); Red Blood Count 5.21 M/mcL (4.19-5.50); Red Cell Distribution Width 13.6 % (11.5-14.5); Segmented Neutrophils % 75.5 %; White Blood Count 11.1 K/mcL (4.3-11.1)
[2019-09-26 02:48] LABS: Alanine Aminotransferase 13 Units/L (7-52); Albumin 4.2 g/dL (3.5-5.7); Albumin/Globulin Ratio 1.6 (1.1-2.2); Alkaline Phosphatase 111 Units/L (34-104); Aspartate Amino Transferase 14 Units/L (13-39); BUN/Creatinine Ratio 15 (6-26); Bilirubin,Total 0.5 mg/dL (0.3-1.0); Blood Urea Nitrogen 16 mg/dL (8-23); Calcium 9.4 mg/dL (8.6-10.3); Carbon Dioxide 23 mEq/L (23-29); Chloride 107 mEq/L (98-107); Globulin 2.6 g/dL (2.4-3.5); Glucose 116 mg/dL (70-105); Osmolality,Calculated 294 (280-300); Potassium 4.1 mEq/L (3.5-5.1); Sodium 141 mEq/L (136-145); Total Protein 6.8 g/dL (6.4-8.9); eGFR For African Americans > 60 (> 60); eGFR For Non-African Americans > 60 (> 60)
[2019-09-26] MEDS: *HR* Heparin 5,000 UNIT/ML VIAL SQ SCH (05:21)
[2019-09-26 11:15] VITALS: BP 117/75
== END 2019-09-26 13:27 | disposition home health service (06) ==
LOC: EMEROOARM 17:00 → 3BNU 17:00 → SUATTDRO 21:25 → 3BNU 22:17
PROVIDERS: ADMIT Internal Medicine; ATTEND Internal Medicine